=== PATIENT | male | born 1955 | race Caucasian/White ===

== ENCOUNTER 2021-07-05 12:51 | Inpatient (IN) | payer OTHER ==
[~2021-07-05] VITALS: Ht 188 cm; Wt 126.6 kg
--- NOTE | ~2021-07-05 | CON ---
[address] [address] CONSULTATION Name: GIBSON RIBEIRO [place] Room: [address] ADM IN M.R.#: [id number] Admission: 07/05/21 Attend Phys: Kofi Rankin Discharge: Date of : 57 Report #: [id number] THIS REPORT FOR: cc: KUSHAL - No family physician/PCP FAM - No family physician/PCP Hill Cartagena MD ~ DATE OF CONSULTATION: 07/07/2021 HISTORY OF PRESENT ILLNESS: This is a 65-year-old male patient who was discussed with the nurses and the records were reviewed and I called the patient's niece who is the only person whose number is there and talked to her. 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 Records Indicate he was admitted with COVID, but subsequently arrested multiple times. Before that he was conscious and according to niece he has a fairly good physical and cognition before these episodes occurred. REVIEW OF SYSTEMS: Positive for hypertension and diabetes according to the niece, but he was never taking much medication. He is not a medication person according to her. I talked to the nurse that the patient is off sedation since 7 a.m. this morning and they have not noticed any activity. His pressors are being tapered off. His blood pressure is still somewhat on the lower side, but better than it has been. A 14-point review of system was carried out. 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 History of diabetes and hypertension, but the niece did not know all the details of the patient's disease and the medication he was taking. According to her rest of the 14-point review of system was noncontributory. PAST MEDICAL HISTORY: Positive for diabetes and hypertension. FAMILY HISTORY: Unremarkable. SOCIAL HISTORY: Does not smoke, but drinks alcohol occasionally. PHYSICAL EXAMINATION: He has no response of any kind. His pupils are midpoint, but nonreactive. He did not have any doll's eye movements or any reflexes or any response including plantars. LABORATORY DATA: This patient's white count is 55.9. He is slightly hypernatremic at 149. His renal function is only 20, calcium is 6.3. Bilirubin is 1.3. AST is 1374, albumin is only 1.8. IMPRESSION: This patient's clinical presentation is consistent [place] [address] CONSULTATION Name: GIBSON RIBEIRO [place] Room: [address]#: [id number] Admission: 07/05/21 Attend Phys: Kofi Rankin Discharge: Date of : 57 Report #: [id number] RECOMMENDATIONS: 1. I will suggest a CT scan of the head as the first test. 2. Depending upon the CT scan as well as a repeat examination we may have to carry out a brain flow scan in this patient and/or maybe an EEG in this patient. I discussed with patient's niece in detail and She understands that there is some risk on taking down for CT scan. She is agreeable that is the main contacts in this patient. Thank you very much for this referral. By: 1357 [id number] Cartagena MD /nt
--- NOTE | ~2021-07-05 | EEG ---
[address] [address] EEG STUDY REPORT Name: RIBEIROGIBSON DANNY Room: [address] IN M.R.#: [id number] Admission: 07/05/21 Attend Phys: Kofi Rankin Discharge: Date of : 57 Report #: [id number] THIS REPORT FOR: cc: FAM - No family physician/PCP FAM - No family physician/PCP Hill Cartagena MD ~ DATE OF SERVICE: 07/08/2021 This patient's EEG is being evaluated to look for electrical activity. EEG was started at 7 microvolt. No cortical activity was noticed. At 2 microvolt, lot of artifact is present, but it becomes difficult to tell if any cortical activity is present or not. There was no well-defined cortical activity present. IMPRESSION: This patient's EEG does not demonstrate any clear-cut cortical activity at the regular sensitivity of 7 microvolt. It is difficult to tell at 2 microvolts because a lot of artifact is present, but no clear-cut cortical activity is present. It will be desirable to get this patient other ancillary tests like brain flow study to confirm that finding. Thank you very much for this referral. By: 1237 1344Pmateo Cartagena MD /nt
[~2021-07-05 12:51] MED LIST: AMOXICILLIN 50500 MG PO; ASPIRIN325 PO; DUONEB 2.5-0.5 M3 ML INH; MEDROLDOSEPACK PO; NEBULIZER MISCELL; PREDNISONE 20 M20 MG PO; VENTOLIN HFA 1818 GM INH; ZPAK PO
[2021-07-05 12:55] VITALS: BP 128/78
[2021-07-05 13:15] LABS: BE 0.4 mmol/L (-2 to +3); PCO2 27.7 mmHg (35.0-45.0); pH 7.515 (7.340-7.450)
[2021-07-05 13:20] LABS: HEMATOCRIT 41.5 % (42.0-52.0); PLATELET COUNT* 179 thou/uL (150-400); PO2 36.3 mmHg (75.0-100.0); RBC 4.79 mil/uL (4.50-6.00)
[2021-07-05 13:22] LABS: ABSOLUTE BASOPHILS 0.1 thou/uL (0.0-0.2); ABSOLUTE EOSINOPHILS 0.1 thou/uL (0.0-0.7); ABSOLUTE LYMPHOCYTES 0.7 thou/uL (0.8-5.3); ABSOLUTE MONOCYTES 0.5 thou/uL (0.0-1.2); ABSOLUTE NEUTROPHILS 17.2 thou/uL (1.6-8.1); BASOPHILS 0.4 %; EOSINOPHILS 0.6 %; HEMOGLOBIN 13.7 gm/dL (14.0-18.0); LYMPHOCYTES 3.6 %; MCH 28.6 pg (26.0-34.0); MCV 86.6 fL (80.0-100.0); MONOCYTES 2.4 %; MPV 8.9 fl. (7.2-11.1); NUCLEATED RBCS 0 /100WBC; RDW-CV 14.3 % (10.5-14.5); WBC 18.5 thou/uL (4.0-11.0)
[2021-07-05 13:29] LABS: CALCIUM 7.4 mg/dL (8.5-10.1); CREATININE 1.5 mg/dL (0.6-1.3)
[2021-07-05 13:43] LABS: ALBUMIN 1.6 g/dL (3.4-5.0); TOTAL PROTEIN 6.9 g/dL (6.4-8.2)
[2021-07-05 13:44] LABS: POTASSIUM 2.8 mmol/L (3.5-5.1)
--- NOTE | 2021-07-05 15:29 | EKG ---
[place] [address] ELECTROCARDIOGRAM REPORT Name: GIBSON RIBEIRO Room: [facility]#: [id number] Admission: 07/05/21 Attend Phys: Discharge: Date of : 57 Date of Service: 07/05/21 1258 Report #: [id number] THIS REPORT FOR: //name// [facility] ED Test Date: 2021-07-05 Test Time: 12:58:24 Pat Name: GIBSON RIBEIRO Department: Room: Gender: Assistant Community Manager: : 1955 Requested By: Mayda Higuera Order Number: [id number] MD: Zachary Juarez Measurements Intervals [place] Rate: 90 P: 21 [place]: 154 QRS: -21 QRSD: 107 T: 21 QT: 424 QTc: 519 Interpretive Statements Sinus rhythm Borderline left axis deviation Low voltage, extremity leads Prolonged QT interval Compared to ECG 11/26/2016 15:15:18 Prolonged QT interval now present Electronically Signed On 07-05-2021 15:29:31 CDT by Zachary Juarez [email or web address] <ELECTRONICALLY SIGNED> By: Zachary Juarez MD, [facility] 07/05/21 1529 1258 1258 Zachary Juarez MD, [facility] /EPI
[2021-07-05 18:08] LABS: BE 0.8 mmol/L (-2 to +3); PCO2 32.4 mmHg (35.0-45.0); PO2 72.6 mmHg (75.0-100.0); pH 7.479 (7.340-7.450)
[2021-07-06] VITALS (9 sets, daily range): BP systolic 92–126; BP diastolic 51–78
--- NOTE | 2021-07-06 15:00 | NUR ---
PT WAS ON BI-PAP THIS AM. PUT ON NRB WHILE PT ATE BREAKFAST. PT TOLERATED NRB WELL SATING 93%. PT PUT BACK ON BI-PAP AFTER BREAKFAST THEN PUT BACK ON NRB TO EAT LUNCH. STILL SATING 93-96%. 1730 B/P DROPPED TO 88/34 WITH HEART RATE OF 34. SEE CODE FLOW SHEET.
--- NOTE | 2021-07-06 17:42 | NUR ---
MONITOR BEEPING JA CHECKED PT AND FOUND NOT BREATHING AND NO PULSE. CODE INITIATED. SEE CODE SHEET.
[2021-07-06 18:13] LABS: HEMATOCRIT 44.7 % (42.0-52.0); MCH 28.6 pg (26.0-34.0); MCV 98.7 fL (80.0-100.0); MPV 9.7 fl. (7.2-11.1); RBC 4.53 mil/uL (4.50-6.00); RDW-CV 16.4 % (10.5-14.5)
[2021-07-06 18:21] LABS: CALCIUM 8.1 mg/dL (8.5-10.1); CREATININE 1.9 mg/dL (0.6-1.3); POTASSIUM 4.9 mmol/L (3.5-5.1)
--- NOTE | 2021-07-06 18:30 | NUR ---
APPROX. 183 CHARGE NURSE CHAVO CALLED FAMILY.
--- NOTE | 2021-07-06 19:00 | NUR ---
CARE RESUMED AT THIS TIME. PT IS INTUBATED AND CONNECTED TO THE VENTILATOR. ANESTHESIA AT BEDSIDE TO PLACE ARTERIAL LINE. LEFT GROIN CENTRAL LINE IN PLACE, WITH MEDICATIONS INFUSING, SEE MAR.
--- NOTE | 2021-07-06 19:00 | NUR ---
REPORT RECEIVED FROM TRAN BRONSON AT BEDSIDE.
[2021-07-06 19:35] LABS: BE -24.7 mmol/L (-2 to +3); PCO2 VENOUS 61.9 mmHg (41.0-51.0)
[2021-07-06 19:41] LABS: ABSOLUTE BASOPHILS 0.3 thou/uL (0.0-0.2); ABSOLUTE EOSINOPHILS 0.2 thou/uL (0.0-0.7); ABSOLUTE LYMPHOCYTES 3.1 thou/uL (0.8-5.3); ABSOLUTE MONOCYTES 0.6 thou/uL (0.0-1.2); ABSOLUTE NEUTROPHILS 45.4 thou/uL (1.6-8.1); BASOPHILS 0.7 %; EOSINOPHILS 0.5 %; HEMATOCRIT 43.1 % (42.0-52.0); HEMOGLOBIN 12.6 gm/dL (14.0-18.0); LYMPHOCYTES 6.2 %; MCH 28.4 pg (26.0-34.0); MCHC 29.2 g/dL (28.0-37.0); MCV 97.1 fL (80.0-100.0); MONOCYTES 1.3 %; MPV 9.1 fl. (7.2-11.1); NUCLEATED RBCS 0 /100WBC; PLATELET COUNT* 188 thou/uL (150-400); POLYS 91.3 %; RBC 4.44 mil/uL (4.50-6.00); RDW-CV 16.3 % (10.5-14.5)
[2021-07-06 19:45] LABS: CALCIUM 6.9 mg/dL (8.5-10.1); CREATININE 2.3 mg/dL (0.6-1.3); POTASSIUM 5.7 mmol/L (3.5-5.1); WBC 49.7 thou/uL (4.0-11.0)
[2021-07-06 19:50] LABS: ALBUMIN 1.2 g/dL (3.4-5.0); TOTAL BILIRUBIN 0.6 mg/dL (<0.1-1.0); TOTAL PROTEIN 5.6 g/dL (6.4-8.2)
--- NOTE | 2021-07-06 19:50 | NUR ---
MITCHELL RIBEIRO (SISTER) LEFT HER PHONE NUMBER TO BE CONTACTED @ [phone]
--- NOTE | 2021-07-06 21:05 | NUR ---
SPOKE WITH PATIENT'S FAMILY, UPDATE GIVEN ON CRITICAL CONDITION OF PATIENT AND PLAN OF CARE FOR THE NIGHT. FAMILY HOSTILE AND STATES "I DON'T KNOW WHY WE WERE EVEN CALLED. THIS IS RIDICULIOUS". FAMILY INFORMED THAT PT IS CRITICAL AND AGAIN FAMILY STATES "WELL, WHAT ARE WE SUPPOSED TO DO ABOUT THIS?". SISTER DOES STATE THAT SHE WILL MAKE CONTACT WITH OTHER FAMILY MEMBERS TO GIVE UPDATE. BROTHER REMAINED HOSTILE WITH STAFF ABOUT BEING CONTACTED ABOUT PATIENT'S CONDITION.
[2021-07-06 21:44] LABS: FIBRINOGEN 370 mg/dL (200-340); INR 1.3
--- NOTE | 2021-07-06 21:50 | NUR ---
REPORT GIVEN TO TRAN ROMANO IN ICU. PT TO BE TRANSFERRED TO ICU ROOM 4.
[2021-07-06 21:52] LABS: PCO2 49.8 mmHg (35.0-45.0); PO2 90.6 mmHg (75.0-100.0)
[2021-07-06 21:55] LABS: pH 7.029 (7.340-7.450)
[2021-07-07] VITALS (79 sets, daily range): BP systolic 82–158; BP diastolic 50–92
--- NOTE | 2021-07-07 06:55 | NUR ---
CTN NUMBER [id number]
[2021-07-07 07:21] LABS: HEMATOCRIT 38.6 % (42.0-52.0); HEMOGLOBIN 12.1 gm/dL (14.0-18.0); MCH 28.3 pg (26.0-34.0); MCHC 31.4 g/dL (28.0-37.0); MPV 8.9 fl. (7.2-11.1); NUCLEATED RBCS 1 /100WBC; PLATELET COUNT* 200 thou/uL (150-400); RBC 4.28 mil/uL (4.50-6.00); RDW-CV 14.8 % (10.5-14.5)
[2021-07-07 07:40] LABS: ALBUMIN 1.8 g/dL (3.4-5.0); CALCIUM 6.3 mg/dL (8.5-10.1); CREATININE 3.2 mg/dL (0.6-1.3); TOTAL BILIRUBIN 1.3 mg/dL (<0.1-1.0); TOTAL PROTEIN 5.6 g/dL (6.4-8.2)
[2021-07-07 07:42] LABS: POTASSIUM 4.3 mmol/L (3.5-5.1)
[2021-07-07 07:56] LABS: MCV 90.1 fL (80.0-100.0)
[2021-07-07 07:57] LABS: WBC 55.9 thou/uL (4.0-11.0)
--- NOTE | 2021-07-07 08:01 | NUR ---
MED TITRATION INSULIN AT 15ML/H FENTYL OFF VERSED OFF BICARB AT 50 MLML/H [id number] AT 18.75 ML/H DOPAMIN OFF [id number] 56.25
--- NOTE | 2021-07-07 08:07 | NUR ---
PROVIDER NOTIFED AT APPROX 0300 ABOUT PT COLD LEFT ARM AND POOR CIRCULATION, PROVIDER STATED THAT WILL CONTINUE MONOITOR AND WILL CHECK ON IT IN THE AM.
[2021-07-07 08:23] LABS: BE -4.5 mmol/L (-2 to +3); PO2 76.3 mmHg (75.0-100.0)
[2021-07-07 08:24] LABS: PCO2 61.6 mmHg (35.0-45.0); pH 7.214 (7.340-7.450)
[2021-07-07 08:44] LABS: ABSOLUTE LYMPHOCYTES 1.1 thou/uL (0.8-5.3); ABSOLUTE MONOCYTES 0.6 thou/uL (0.0-1.2); ABSOLUTE NEUTROPHILS 54.2 thou/uL (1.6-8.1); PLATELET ESTIMATE ADEQUATE
--- NOTE | 2021-07-07 09:18 | NUR ---
CM SPK WITH PT'S NIECE AND SISTER, MITCHELL, MITCHELL TONY WAS IN ED NOTE. PER MITCHELL SHE DID NOT KNOW MUCH ABOUT PT HX. PT'S MIKE GREEN INDICATED PT WAS DX ON AT HOSPITAL AFTER TAKING A HOME TEST. PT WENT TO A WHERE SEVERAL INDIVIDUALS AT THAT ARE HOSPTIALISED WITH COVID. PT STAY HOME "STRUGGLING" SINCE DX, PT "DIDNT BELIVE IN COVID AND WAS REFUSING TO GO TO THE HOSPITAL." MIKE EVENTALLY WENT TO PT HOME AND PT O2 STATS WERE IN LOWS 70S. 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 PT WAS INDEPENDENT WITH CARE AND LIVED ALONE. PT HAS NO DMES OR HX WITH SNF.
--- NOTE | 2021-07-07 09:55 | NUR ---
Infection Prevention: Per [facility] patient has a positive Covid PCR test on 06/24/21. There is no record of Covid Vaccine in [place] Vaccine Records for Show Me Vax or Epitrax System as of 07/07/2021.
[2021-07-07 11:08] LABS: BE -3.3 mmol/L (-2 to +3); PO2 86.9 mmHg (75.0-100.0)
[2021-07-07 11:10] LABS: PCO2 57.6 mmHg (35.0-45.0); pH 7.251 (7.340-7.450)
--- NOTE | 2021-07-07 11:28 | 2DMMODE ---
[place] [address] 2 D/M-MODE ECHOCARDIOGRAM Name: GIBSON RIBEIRO ALL[place] Room: [address] ADM IN Rebecca.Beulah.#: [id number] Admission: 07/05/21 Attend Phys: Benjamin Rahman Discharge: Date of : 57 Date of Service: 07/07/21 1128 Report #: [id number] THIS REPORT FOR: cc: FAM - No family physician/PCP FAM - No family physician/PCP Zachary Juarez MD [facility] ~ APPROVED REPORT Study performed: 07/07/2021 10:02:34 EXAM: Comprehensive 2D, Doppler, and color-flow Echocardiogram Patient Location: In-Patient Room #: 004 Status: routine BSA: 2.51 HR: 106 bpm BP: 140/83 mmHg Rhythm: NSR Other Information Technically limited study due to body habitus, inability to position patient, patient on ventilator. Indications cardiac arrest 2D Dimensions LVOT Diam: 21.18 (18-24mm) Aortic Root: 39.74 mm Volumes Left Atrial Volume (Systole) LA ESV Index: 21.70 mL/m2 Aortic Valve AoV Peak Lionel.: 1.16 m/s AO Peak Gr.: 5.39 mmHg LVOT Max P.64 mmHg AO Mean Gr.: 3.12 mmHg LVOT Mean P.61 mmHg LVOT Max V: 1.29 m/s AO V2 VTI: 14.88 cm LVOT Mean V: 0.71 m/s REMI (VTI): 3.87 cm2 LVOT V1 VTI: 16.35 cm Mitral Valve E/A Ratio: 0.62 [place] [address] 2 D/M-MODE ECHOCARDIOGRAM Name: RIBEIROGIBSON WELLINGTON ALLEN Room: [address] IN [facility]#: [id number] Admission: 07/05/21 Attend Phys: Benjamin Rahman Discharge: Date of : 57 Date of Service: 07/07/21 1128 Report #: [id number] MV Decel. Time: 89.48 ms MV E Max Lionel.: 0.60 m/s MV PHT: 25.95 ms MVA (PHT): 8.48 cm2 TDI E/Medial E': 7.50 Medial E' Lionel.: 0.08 m/s Left Ventricle The left ventricle is normal size. There is normal LV segmental wall motion. There is normal left ventricular wall thickness. Left ventricular systolic function is normal. The left ventricular ejection fraction is within the normal range. LVEF is 60-65%. Grade I - abnormal relaxation pattern. Right Ventricle Right ventricle is mild to moderately dilated. The right ventricular systolic function is normal. Atria The left atrium size is normal. Right atrium is mildly dilated. Aortic Valve The aortic valve is normal in structure. No aortic regurgitation is present. There is no aortic valvular stenosis. Mitral Valve The mitral valve is normal in structure. There is no mitral valve regurgitation noted. No evidence of mitral valve stenosis. Tricuspid Valve The tricuspid valve is normal in structure. Trace tricuspid regurgitation. Pulmonic Valve The pulmonary valve is normal in structure. There is no pulmonic valvular regurgitation. Great Vessels The aortic root is normal in size. IVC is dilated. Pericardium There is no [place] [address] 2 D/M-MODE ECHOCARDIOGRAM Name: GIBSON RIBEIRO ALLEN Room: [address] IN .R.#: [id number] Admission: 07/05/21 Attend Phys: Benjamin Rahman Discharge: Date of : 57 Date of Service: 07/07/21 1128 Report #: [id number] <Conclusion> The left ventricle is normal size. There is normal left ventricular wall thickness. Left ventricular systolic function is normal. The left ventricular ejection fraction is within the normal range. LVEF is 60-65%. Grade I - abnormal relaxation pattern. Right ventricle is mild to moderately dilated. The right ventricular systolic function is normal. The left atrium size is normal. Right atrium is mildly dilated. The aortic valve is normal in structure. The mitral valve is normal in structure. The tricuspid valve is normal in structure. Trace tricuspid regurgitation. IVC is dilated. There is no pericardial effusion. There is normal LV segmental wall motion. <ELECTRONICALLY SIGNED> By: Zachary Juarez MD, [facility] 07/07/21 1128 1128 1128 Zachary Juarez MD, FACC /INF
[2021-07-07 13:50] LABS: BE -1.2 mmol/L (-2 to +3); PCO2 37.9 mmHg (35.0-45.0); pH 7.405 (7.340-7.450)
[2021-07-07 13:52] LABS: PO2 141.9 mmHg (75.0-100.0)
--- NOTE | 2021-07-07 14:21 | CON ---
[address] [address] CONSULTATION Name: GEMAGIBSON [place]IL[place] Room: [address] ADM IN M.R.#: [id number] Admission: 07/05/21 Attend Phys: Kofi Rankin Discharge: Date of : 57 Report #: [id number] THIS REPORT FOR: cc: KUSHAL - No family physician/PCP FAM - No family physician/PCP Partha Baum MD ~ DATE OF CONSULTATION: 07/07/2021 REQUESTING PHYSICIAN: Hospitalist service. INDICATION FOR CONSULTATION: Acute hypoxemic respiratory failure. HISTORY OF PRESENT ILLNESS: The patient is a 65-year-old gentleman. He currently is endotracheally intubated and is unable to provide any history other than being obese with a body mass index of 36. There is no known past medical history. The patient is reported to have tested positive for COVID-19 two weeks ago and is reported to have had symptoms for 24 days. The patient now presented to the Emergency Room with shortness of breath and respiratory distress. In fact, he was brought there by the EMS who found O2 saturation of 64% on room air initially. In the ER, the patient has coded at least twice. He currently is on 100% FiO2 with 10 of PEEP. We are able to oxygenate adequately, but he is on maximal support on the ventilator. He still has a significant metabolic acidosis, but I have adjusted the ventilator to increase minute ventilation and we are following response. The patient did get sedation during the night and until this morning was requiring a fentanyl drip to synchronize with the ventilator during the night, also was on a Versed drip. All the sedation is off now, the patient currently remains unresponsive to maximal painful stimuli. He is hypotensive as well and is on norepinephrine as well as phenylephrine to maintain blood pressure. Pressure in fact have, however, decreased since last night. He remains in renal failure with creatinine rising from 1.5-3.2 at this time. The patient is unable to provide a further history or review of systems. PAST MEDICAL HISTORY: Obesity. There is no other known past medical history. Echocardiogram just performed shows a left ventricular ejection fraction of 60-65% without elevation in right heart pressures. SOCIAL HISTORY: There is no known history of smoking, ethanol abuse or drug abuse. CURRENT MEDICATIONS: List in [employer] reviewed. HOME MEDICATIONS: Unknown. FAMILY HISTORY: [place] [address] CONSULTATION Name: RIBEIROGIBSON JARVIS [place] Room: [address]#: [id number] Admission: 07/05/21 Attend Phys: Kofi Rankin Discharge: Date of : 57 Report #: [id number] ALLERGIES: TETRACYCLINE. PHYSICAL EXAMINATION: GENERAL: He is completely unresponsive to painful stimuli. VITAL SIGNS: He is on 10 of PEEP with 100% FiO2. He was on assist control mode of ventilation. I have just switched him over to pressure control and ventilator settings are reviewed. He is breathing at the set rate on the ventilator, which is 24. He is saturating around 98-99%. His heart rate is 110. He had a fever of 38.1, this morning of 37.0. Body mass index 36. HEENT: Head is normocephalic and atraumatic. He has an endotracheal tube in place. NECK: Does not show raised JVP, asymmetry, mass or lymph nodes. CHEST: Symmetrical expansion on inspection and palpation. On auscultation, breath sounds are bilaterally equal. I do not hear any added sounds, but they are decreased. HEART: Regular tachycardia. No murmur. ABDOMEN: Mildly distended, nontender. EXTREMITIES: Show trace edema, no calf tenderness. SKIN: Dry and intact. NEUROLOGIC: Completely unresponsive to painful stimuli. IMAGING: Chest x-ray consistent with pulmonary infiltrates. I suspect that there is a bacterial infection in addition to COVID-19. LABORATORY DATA: Lab work in [facility] reviewed. Significant leukocytosis as well as renal failure noted. ASSESSMENT AND PLAN: 1. Acute hypoxemic respiratory failure/acute hypercarbic respiratory failure, initially ventilated with assist control. He remained acidotic, switched him over to pressure control. We are adjusting the ventilator and following response. Follow up ABGs are ordered. Currently, he is not requiring any sedation. If he does need sedation, we will consider p.r.n. sedation before considering starting a drip. 2. COVID-19. Noted that he was recently diagnosed with COVID-19 about 2 weeks ago. His COVID-19 PCR as well as antigens now are negative. I would treat him with corticosteroids considering difficulty ventilating and oxygenating. I did put him on 10 mg of dexamethasone b.i.d. I will give one dose of Solu-Medrol as well. We will start with nebulized bronchodilators, likely too late at this point to benefit from convalescent plasma. He is on remdesivir. He also is in renal failure. I do not feel strongly either way regarding continuing or discontinuing remdesivir. I would recommend giving him Actemra. Unfortunately, we do not have Actemra available. 3. Pulmonary infiltrates. He has had symptoms for 24 days. At this point, I [place] [address] [place] [address] CONSULTATION Name: GIBSON RIBEIRO DANNY Room: [address] IN [facility]#: [id number] Admission: 07/05/21 Attend Phys: Kofi Rankin Discharge: Date of : 57 Report #: [id number] feel that the likelihood is that he has a bacterial infection as well. I agree with Zyvox, also agree with Zosyn. We will continue both. We will do more cultures and serologies. I discontinued his azithromycin. I ordered one dose of Levaquin. We will follow clinical picture and creatinine, and we will dose Levaquin accordingly. If there is no stock mover the next 48 hours, then I will plan to dose him again with 750 mg of Levaquin after 48 hours. 4. Acute renal failure. Initial creatinine was 1.5, now up to 3.2. Nephrology service is on the case. He does have a metabolic acidosis as well. I would defer management of fluid and electrolytes to the Nephrology service. 5. Obesity. He likely has underlying obstructive sleep apnea. 6. Status post cardiac arrest x 2. It appears likely that he has some anoxic brain injury. Neurology service has been consulted. 7. IV access. He does have a central line as well as A-line. 8. Deep vein thrombosis prophylaxis. For now, cut back Lovenox to 30 once a day. We will follow creatinine and adjust. 9. Gastrointestinal prophylaxis, Protonix. 10. Clostridium difficile prophylaxis. If able to, then take meds via OGs and we will start Lactinex. 11. Hyperglycemia. On an insulin drip. The patient is critically ill at this time. Total time spent providing critical care to this patient today is 42 minutes. <ELECTRONICALLY SIGNED> By: Partha Baum MD 07/07/21 1421 1040 1217Anica Baum MD /nt
--- NOTE | 2021-07-07 20:59 | NUR ---
LEVOPHED AND KATHI GTT TITRATED THROUGHOUT THE DAY PER PROTOCOL. ABLE TO TURN OFF LEVO AND KATHI TITRATED DOWN TO 50 MCG/HR. ALL SEDATION TURNED OFF THIS AM. NO REFLEXES AND UNRESPONSIVE. PROVIDERS AWARE. MTN UPDATED. CT HEAD DUE. NIECE UPDATED.
[2021-07-08] VITALS (88 sets, daily range): BP systolic 84–169; BP diastolic 49–85
[2021-07-08 05:46] LABS: ABSOLUTE BASOPHILS 0.4 thou/uL (0.0-0.2); ABSOLUTE LYMPHOCYTES 0.5 thou/uL (0.8-5.3); ABSOLUTE MONOCYTES 1.4 thou/uL (0.0-1.2); BASOPHILS 1.2 %; EOSINOPHILS 0.1 %; HEMATOCRIT 34.2 % (42.0-52.0); HEMOGLOBIN 11.4 gm/dL (14.0-18.0); LYMPHOCYTES 1.5 %; MCH 28.6 pg (26.0-34.0); MCHC 33.3 g/dL (28.0-37.0); MCV 85.9 fL (80.0-100.0); MONOCYTES 4.5 %; MPV 9.1 fl. (7.2-11.1); NUCLEATED RBCS 0 /100WBC; PLATELET COUNT* 145 thou/uL (150-400); POLYS 92.7 %; RBC 3.98 mil/uL (4.50-6.00); RDW-CV 14.5 % (10.5-14.5)
[2021-07-08 05:54] LABS: ABSOLUTE NEUTROPHILS 29.6 thou/uL (1.6-8.1); WBC 31.9 thou/uL (4.0-11.0)
[2021-07-08 06:16] LABS: ALBUMIN 1.5 g/dL (3.4-5.0); MAGNESIUM 2.7 mg/dL (1.8-2.4); PHOSPHORUS* 5.2 mg/dL (2.5-4.9); POTASSIUM 4.3 mmol/L (3.5-5.1); TOTAL BILIRUBIN 0.8 mg/dL (<0.1-1.0); TOTAL PROTEIN 4.8 g/dL (6.4-8.2)
[2021-07-08 06:23] LABS: CREATININE 4.9 mg/dL (0.6-1.3)
[2021-07-08 06:26] LABS: CALCIUM 5.8 mg/dL (8.5-10.1)
[2021-07-08 08:18] LABS: BE 2.2 mmol/L (-2 to +3); PCO2 32.1 mmHg (35.0-45.0); PO2 91.4 mmHg (75.0-100.0); pH 7.505 (7.340-7.450)
[2021-07-08 16:35] LABS: BE -2.5 mmol/L (-2 to +3); PCO2 28.3 mmHg (35.0-45.0); PO2 69.1 mmHg (75.0-100.0); pH 7.467 (7.340-7.450)
--- NOTE | 2021-07-08 18:44 | NUR ---
ASSUMED CARE AT 0700. CARDIAC MONITORING IN PLACE. HIGH FALL RISK PRECAUTIONS IN PLACE FOR PATIENT SAFETY. CURRENTLY ON KATHI DRIP FOR BP SUPPORT. NO BM. ALL ASSESSMENTS COMPLETED CHARTED. NUCLEAR MED SCHEDULED 10AM ASHLYN.
[2021-07-09] VITALS (85 sets, daily range): BP systolic 99–145; BP diastolic 49–71
[2021-07-09 05:05] LABS: ABSOLUTE BASOPHILS 0.1 thou/uL (0.0-0.2); ABSOLUTE LYMPHOCYTES 0.5 thou/uL (0.8-5.3); ABSOLUTE NEUTROPHILS 31.7 thou/uL (1.6-8.1); BASOPHILS 0.4 %; HEMATOCRIT 34.1 % (42.0-52.0); HEMOGLOBIN 11.2 gm/dL (14.0-18.0); LYMPHOCYTES 1.6 %; MCH 28.2 pg (26.0-34.0); MCHC 32.7 g/dL (28.0-37.0); MCV 86.3 fL (80.0-100.0); MONOCYTES 5.8 %; MPV 9.3 fl. (7.2-11.1); NUCLEATED RBCS 0 /100WBC; PLATELET COUNT* 173 thou/uL (150-400); POLYS 92.2 %; RBC 3.95 mil/uL (4.50-6.00); RDW-CV 14.6 % (10.5-14.5); WBC 34.4 thou/uL (4.0-11.0)
[2021-07-09 05:33] LABS: ALBUMIN 1.4 g/dL (3.4-5.0); CALCIUM 6.2 mg/dL (8.5-10.1); MAGNESIUM 2.5 mg/dL (1.8-2.4); POTASSIUM 3.8 mmol/L (3.5-5.1); TOTAL BILIRUBIN 0.7 mg/dL (<0.1-1.0)
[2021-07-09 05:44] LABS: CREATININE 7.2 mg/dL (0.6-1.3)
[2021-07-09 07:06] LABS: BE -1.6 mmol/L (-2 to +3); PCO2 33.5 mmHg (35.0-45.0); PO2 62.8 mmHg (75.0-100.0); pH 7.436 (7.340-7.450)
[2021-07-09 14:27] LABS: BE -1.2 mmol/L (-2 to +3); PCO2 34.8 mmHg (35.0-45.0); PO2 110.2 mmHg (75.0-100.0)
[2021-07-09 14:36] LABS: CREATININE 7.8 mg/dL (0.6-1.3); POTASSIUM 4.1 mmol/L (3.5-5.1)
--- NOTE | 2021-07-09 17:05 | NUR ---
All assessments completed as charted. High fall risk precautions in place for patient safety. Cardiac monitoring in place.
[2021-07-10] VITALS (48 sets, daily range): BP systolic 89–138; BP diastolic 51–75
[2021-07-10 04:41] LABS: HEMATOCRIT 30.1 % (42.0-52.0); HEMOGLOBIN 9.9 gm/dL (14.0-18.0); MCH 29.1 pg (26.0-34.0); MCV 88.1 fL (80.0-100.0); MPV 9.5 fl. (7.2-11.1); NUCLEATED RBCS 0 /100WBC; PLATELET COUNT* 130 thou/uL (150-400); RBC 3.41 mil/uL (4.50-6.00); RDW-CV 15.1 % (10.5-14.5); WBC 23.1 thou/uL (4.0-11.0)
[2021-07-10 04:49] LABS: ALBUMIN 1.3 g/dL (3.4-5.0); CALCIUM 6.2 mg/dL (8.5-10.1); MAGNESIUM 2.7 mg/dL (1.8-2.4); TOTAL BILIRUBIN 0.5 mg/dL (<0.1-1.0)
[2021-07-10 04:58] LABS: POTASSIUM 6.1 mmol/L (3.5-5.1)
[2021-07-10 04:59] LABS: CREATININE 9.4 mg/dL (0.6-1.3)
[2021-07-10 06:18] LABS: ABSOLUTE LYMPHOCYTES 1.4 thou/uL (0.8-5.3); ABSOLUTE MONOCYTES 1.6 thou/uL (0.0-1.2); ABSOLUTE NEUTROPHILS 20.1 thou/uL (1.6-8.1); PLATELET ESTIMATE DECREASED
[2021-07-10 06:19] LABS: ANISOCYTOSIS 1+; POIKILOCYTOSIS 1+
[2021-07-10 08:24] LABS: BE -3.2 mmol/L (-2 to +3); PO2 123.1 mmHg (75.0-100.0)
[2021-07-10 08:39] LABS: PCO2 51.2 mmHg (35.0-45.0); pH 7.284 (7.340-7.450)
--- NOTE | 2021-07-10 10:51 | NUR ---
ICU ROUNDS: PT HAS NO MEANINGFUL RESPONSE. FI02 80%. SEDATED. MTN IS FOLLOWING; PLAN IS FOR LIVER TRANSPLANT PENDING NEURO, WHICH WAS POSTPONED UNTIL OR SAT D/T PT BEING GIVEN ATIVAN.
[2021-07-10 11:31] LABS: BE -1.4 mmol/L (-2 to +3); PO2 86.6 mmHg (75.0-100.0); pH 7.379 (7.340-7.450)
[2021-07-10 11:40] LABS: CREATININE 9.9 mg/dL (0.6-1.3); MAGNESIUM 2.7 mg/dL (1.8-2.4); POTASSIUM 5.7 mmol/L (3.5-5.1)
[2021-07-10 18:42] LABS: CALCIUM 6.1 mg/dL (8.5-10.1); CREATININE 10.5 mg/dL (0.6-1.3); POTASSIUM 5.1 mmol/L (3.5-5.1)
[2021-07-11] VITALS (47 sets, daily range): BP systolic 107–154; BP diastolic 52–83
[2021-07-11 02:40] LABS: ABSOLUTE LYMPHOCYTES 0.2 thou/uL (0.8-5.3); ABSOLUTE MONOCYTES 0.7 thou/uL (0.0-1.2); ABSOLUTE NEUTROPHILS 15.3 thou/uL (1.6-8.1); BASOPHILS 0.1 %; HEMATOCRIT 27.8 % (42.0-52.0); LYMPHOCYTES 1.3 %; MCH 28.3 pg (26.0-34.0); MCHC 32.4 g/dL (28.0-37.0); MCV 87.5 fL (80.0-100.0); MONOCYTES 4.3 %; MPV 9.5 fl. (7.2-11.1); NUCLEATED RBCS 0 /100WBC; PLATELET COUNT* 112 thou/uL (150-400); POLYS 94.3 %; RBC 3.18 mil/uL (4.50-6.00); RDW-CV 14.7 % (10.5-14.5); WBC 16.3 thou/uL (4.0-11.0)
[2021-07-11 02:45] LABS: ALBUMIN 1.2 g/dL (3.4-5.0); CALCIUM 6.7 mg/dL (8.5-10.1); MAGNESIUM 2.6 mg/dL (1.8-2.4); TOTAL BILIRUBIN 0.6 mg/dL (<0.1-1.0); TOTAL PROTEIN 4.9 g/dL (6.4-8.2)
[2021-07-11 02:46] LABS: CREATININE 8.3 mg/dL (0.6-1.3)
[2021-07-11 08:37] LABS: BE -1.2 mmol/L (-2 to +3); PCO2 35.2 mmHg (35.0-45.0); PO2 71.9 mmHg (75.0-100.0); pH 7.429 (7.340-7.450)
--- NOTE | 2021-07-11 14:35 | NUR ---
Nutrition: Pt admitted with respiratory failure. Assessed for LOS. Neuro underway to assess for brain , per RN. Will await results and POC. RD available via consult.
[2021-07-12] VITALS (24 sets, daily range): BP systolic 99–139; BP diastolic 56–90
[2021-07-12 05:15] LABS: ABSOLUTE LYMPHOCYTES 0.3 thou/uL (0.8-5.3); ABSOLUTE MONOCYTES 0.9 thou/uL (0.0-1.2); ABSOLUTE NEUTROPHILS 16.2 thou/uL (1.6-8.1); BASOPHILS 0.2 %; HEMATOCRIT 27.1 % (42.0-52.0); HEMOGLOBIN 9.1 gm/dL (14.0-18.0); LYMPHOCYTES 1.5 %; MCH 29.1 pg (26.0-34.0); MCHC 33.4 g/dL (28.0-37.0); MCV 86.9 fL (80.0-100.0); MONOCYTES 5.3 %; MPV 9.5 fl. (7.2-11.1); NUCLEATED RBCS 0 /100WBC; PLATELET COUNT* 136 thou/uL (150-400); RBC 3.12 mil/uL (4.50-6.00); RDW-CV 14.7 % (10.5-14.5); WBC 17.4 thou/uL (4.0-11.0)
[2021-07-12 05:43] LABS: ALBUMIN 1.3 g/dL (3.4-5.0); CALCIUM 6.4 mg/dL (8.5-10.1); MAGNESIUM 2.5 mg/dL (1.8-2.4); POTASSIUM 5.8 mmol/L (3.5-5.1); TOTAL BILIRUBIN 0.5 mg/dL (<0.1-1.0); TOTAL PROTEIN 5.4 g/dL (6.4-8.2)
[2021-07-12 05:59] LABS: CREATININE 7.3 mg/dL (0.6-1.3)
[2021-07-12 08:29] LABS: BE -1.1 mmol/L (-2 to +3); pH 7.399 (7.340-7.450)
[2021-07-12 08:32] LABS: PO2 141.2 mmHg (75.0-100.0)
[2021-07-12 09:09] LABS: HEPATITIS B SURFACE AG Negative (Negative)
--- NOTE | 2021-07-12 15:08 | NUR ---
PLAN OF CARE: PHYSICIAN INFORMS PT REMAINS ON VENT 100% FIO2. NEURO EXAM PENDING. PT REMAINS TELE STATUS. CM WILL REMAIN AVAILABLE TO ASSIST AND FOLLOW NEEDED.
--- NOTE | 2021-07-14 11:17 | CON ---
[address] [address] CONSULTATION Name: RIBEIROGIBSON JARVIS DANNY Room: [address] M.R.#: [id number] Admission: 07/05/21 Attend Phys: Kofi Raknin Discharge: 07/12/21 Date of : 57 Report #: [id number] THIS REPORT FOR: cc: KUSHAL - No family physician/PCP FAM - No family physician/PCP Angela Hopper MD ~ DATE OF CONSULTATION: 07/07/2021 CONSULTING PHYSICIAN: Dr. Rodríguez. REASON FOR CONSULTATION: Acute kidney injury. REASON FOR ADMISSION: Shortness of breath. HISTORY OF PRESENT ILLNESS: This is a 65-year-old male with no past medical history, presented on 07/05 with increasing shortness of breath. Symptoms started 24 hours prior to admission. He was also having cough and upper respiratory tract symptoms. He had a positive COVID test about 2 weeks prior to coming to the hospital. His COVID test here has been negative, but he has been treated for presumed COVID pneumonia. He was extremely hypoxic 64% on room air when he came in, had to stay in the ER for some time because there was no ICU bed, ended up having a cardiac arrest yesterday evening, multiple times over a total time spent of 40 minutes, was successfully resuscitated. The patient has been unresponsive since then. His creatinine was 1.0 initially on admission and has been slowly going up and it is at 3.2 today. He is also not making much urine. He also had evidence of severe lactic acidosis last night was 16.7. He is also on 2 vasopressors as of this morning. For respiratory acidosis, he was also started on low-dose bicarbonate drip. He also has evidence of right pneumothorax. He also has evidence of elevated liver enzymes, hyperglycemia and hypernatremia. White count is significantly elevated at 56,000 today. Apparently, the patient is vaccinated, but we are not sure which vaccine he took. ALLERGIES: TETRACYCLINE. REVIEW OF SYSTEMS: Not able to obtain from the patient because he is not responsive. Please refer to history of present illness. SOCIAL HISTORY: Not known. FAMILY HISTORY: Was not able to obtain from the patient. PAST MEDICAL AND SURGICAL HISTORY: Not able to obtain from the patient. As per patient's chart, the patient does not have any [place] [address] CONSULTATION Name: RIBEIROGIBSON ROTTERDAM JUNCTION Room: [address]#: [id number] Admission: 07/05/21 Attend Phys: Kofi Rankin Discharge: 07/12/21 Date of : 57 Report #: [id number] HOME MEDICATIONS: No home medication is documented in the chart. PHYSICAL EXAMINATION: VITAL SIGNS: Blood pressure is 92/53, pulse ox is 99%. He is on 100% FIO2. His temperature 37.0, pulse rate 120, respiratory rate is 18. GENERAL: The patient is intubated, currently unresponsive. HEAD AND EYES: Atraumatic, normocephalic. Eyes are dilated. Surgical pupil on the left side. EARS, NOSE AND THROAT: Normal ears and nose. ET tube in place. NECK: JVD was difficult to assess. CHEST: Bilaterally diminished breath sounds anteriorly, crackles could not be heard. CARDIOVASCULAR SYSTEM: S1, S2 normal. No murmurs. ABDOMEN: Soft. It is nondistended. Bowel sounds are decreased. LOWER EXTREMITIES: There was no lower extremity edema. NEUROLOGIC FUNCTION: The patient is currently unresponsive. PSYCHIATRIC: Not able to assess right now. LABORATORY DATA: WBC is 56,000, hemoglobin is 12.1, platelet count is 200. His sodium was 149, potassium is 4.3, CO2 is 29, BUN was 48, creatinine was 3.2. Lactic acid was 16.7 yesterday. AST was 1374, ALT was 464. CK was 1178. Calcium was 6.3, phosphorus was 7.0, magnesium was 3.0, lipase was 771, albumin was ____. Other labs are reviewed. IMAGING: Chest x-ray and abdominal x-ray were reviewed. ASSESSMENT: 1. Acute kidney injury, ischemic ATN in the setting of cardiac arrest and septic shock in the setting of COVID pneumonia. CPK is also towards the higher side, so he might be going into rhabdomyolysis as well. We need to check UA if he starts making more urine. Currently, seems to be almost anuric at the current moment. Renal imaging will also be checked. His baseline creatinine 1.0 on admission. Creatinine is at 3.2 at this time. 2. Acute hypoxic and hypercarbic respiratory failure in the setting of COVID-19 pneumonia. Treatment as per ICU team. 3. Elevated transaminases, could be in the setting of shock liver. We will defer to internal medicine for management. 4. Hypocalcemia, could be because of acute sickness. 5. Mild hypernatremia, sodium 149. 6. Leukocytosis. The patient is in septic shock, has evidence of COVID pneumonia. He has negative antigen test as well as a negative PCR, but his COVID was positive 2 weeks ago. 7. Hypoalbuminemia. 8. [place] [address] CONSULTATION Name: GIBSON RIBEIRO DANNY Room: [address]#: [id number] Admission: 07/05/21 Attend Phys: Kofi Rankin Discharge: 07/12/21 Date of : 57 Report #: [id number] 9. Lactic acidosis. 10. Hyperphosphatemia. 11. Hypermagnesemia. 12. Combination of respiratory and metabolic acidosis. 13. Status post cardiac arrest multiple times while he was in the ER, over a time spent of 40 minutes, unresponsive after that. PLAN: 1. Not making much urine, patient is heading towards dialysis, although there is no acute need for dialysis right now. 2. He is unresponsive after multiple episodes of cardiac arrest yesterday, we will defer to neurology for evaluation. 3. Try to mix his drips in D5 water if possible because of hypernatremia. 4. Check a UA if possible. 5. Renal ultrasound ordered. 6. Avoid nephrotoxic agents and try to keep MAP around 65-70. 7. Okay to continue low-dose bicarbonate drip for now, but if respiratory acidosis is improved on the next ABG, bicarbonate drip can be stopped. 8. Adjust Zosyn due to his decreased GFR. 9. Right pneumothorax, acute respiratory failure due to COVID pneumonia. We will defer to pulmonary for management of that. 10. Hypocalcemia, replace. 11. Phosphorus will be followed. 12. Avoid magnesium-containing compounds. Thank you for this consultation. We will follow with you. The patient is critically sick. About 40 minutes of critical care time was spent in chart review, placing orders and care coordination. Discussed with Dr. Rahman and the patient's nurse. <ELECTRONICALLY SIGNED> By: Angela Hopper MD 07/14/21 [id number] Hopper MD /nt
== END 2021-07-12 14:20 | DRG 871 ==
LOC: M.ERS 12:51 → M.TBA-ER 20:41 → M.ICU 07-06 21:47
PROVIDERS: Emergency Medicine; Family Medicine; Internal Medicine; Internal Medicine Critical Care Medicine; Nurse Practitioner Family; ADMIT Internal Medicine; ATTEND Internal Medicine
PROC: 5A12012 Performance of Cardiac Output, Single, Manual (ICD-10-PCS; principal; 2021-07-05)
PROC: 5A09357 Assistance with Respiratory Ventilation, Less than 24 Consecutive Hours, Continuous Positive Airway Pressure (ICD-10-PCS; principal; 2021-07-05)
PROC: 0BH17EZ Insertion of Endotracheal Airway into Trachea, Via Natural or Artificial Opening (ICD-10-PCS; 2021-07-06)
PROC: 06HY33Z Insertion of Infusion Device into Lower Vein, Percutaneous Approach (ICD-10-PCS; 2021-07-06)
PROC: XW033E5 Introduction of Remdesivir Anti-infective into Peripheral Vein, Percutaneous Approach, New Technology Group 5 (ICD-10-PCS; 2021-07-06)
PROC: 5A1945Z Respiratory Ventilation, 24-96 Consecutive Hours (ICD-10-PCS; 2021-07-06)
PROC: 02HV33Z Insertion of Infusion Device into Superior Vena Cava, Percutaneous Approach (ICD-10-PCS; 2021-07-10)
DX: A41.9 Sepsis, unspecified organism (principal); U07.1 COVID-19; N17.0 Acute kidney failure with tubular necrosis; G93.41 Metabolic encephalopathy; J80 Acute respiratory distress syndrome; J12.82 Pneumonia due to coronavirus disease 2019; K72.00 Acute and subacute hepatic failure without coma; G93.1 Anoxic brain damage, not elsewhere classified; E87.0 Hyperosmolality and hypernatremia; E87.2 Acidosis; E87.1 Hypo-osmolality and hyponatremia; J93.83 Other pneumothorax; E83.51 Hypocalcemia; D72.829 Elevated white blood cell count, unspecified; E83.39 Other disorders of phosphorus metabolism; E83.41 Hypermagnesemia; I46.9 Cardiac arrest, cause unspecified; R73.9 Hyperglycemia, unspecified; E66.9 Obesity, unspecified; Z68.35 Body mass index [BMI] 35.0-35.9, adult; Z88.1 Allergy status to other antibiotic agents; Z83.3 Family history of diabetes mellitus; Z82.49 Family history of ischemic heart disease and other diseases of the circulatory system